=== PATIENT | female | born 1990 | race Hispanic/Latino ===

== ENCOUNTER 2025-08-26 17:12 | Inpatient (IN) | payer BC ==
[2025-08-26 17:40] LABS: #Basophils 0.05 10x3/uL (0.0-0.2); #Eosinophils 0.15 10x3/uL (0.0-0.5); #Monocytes 0.65 10x3/uL (0.0-1.1); #Neutrophils 7.14 10x3/uL (1.5-8.4); %Basophils 0.5 % (0.0-2.0); %Eosinophils 1.5 % (0.0-6.0); %Lymphocytes 22.1 % (18.0-47.0); %Monocytes 6.3 % (0.0-10.0); %Neutrophils 69.3 % (40.0-75.0); Hematocrit 38.3 % (34.9-44.5); Hemoglobin 13.4 g/dL (12.0-15.5); Mean Corpuscular Hemoglobin 31.7 pg (27.0-33.0); Mean Corpuscular Volume 90.5 fL (81.6-98.3); Platelet Count 388 10x3/uL (150-450); Red Blood Cell (RBC) Count 4.23 10x6/uL (3.90-5.03); White Blood Cell (WBC) Count 10.30 10x3/uL (3.5-10.5)
[2025-08-26 17:54] LABS: ALT (SGPT) 19 U/L (Less than 34); AST (SGOT) 18 U/L (11-34); Albumin 3.7 g/dL (3.1-4.5); Alkaline Phosphatase 118 U/L (40-110); Anion Gap 12 mmol/L (10-20); BUN (Urea Nitrogen) 6 mg/dL (7.0-18.7); Bilirubin, Total 0.4 mg/dL (0.3-1.2); Calc. Creatinine Clearance 0 mL/min (70-130); Calcium 8.8 mg/dL (7.8-10.44); Carbon Dioxide 22 mmol/L (22-29); Chloride 103 mmol/L (98-107); Globulin 4.2 g/dL (2.4-3.5); Glucose 131 mg/dL (70-105); Potassium 3.8 mmol/L (3.5-5.1); Sodium 133 mmol/L (136-145)
[2025-08-26 17:59] LABS: Troponin I Less than 0.010 ng/mL (< 0.028)
[2025-08-26] MEDS ORDERED: Ketorolac Tromethamine 30 MG (1 mL) VIAL ONE ×2 (18:11→19:59)
[2025-08-26] MEDS ORDERED: Albuterol 2.5 MG (3 mL) NEB ONE (18:15)
[2025-08-26 18:26] LABS: BHCG - Serum Negative (NEGATIVE); Pregs Control Background? CLEAR/WHITE (CLR/WHITE); Pregs Control Bar Appear? YES (CONTROL BAR)
[2025-08-26] MEDS ORDERED: Acetaminophen 325 MG TAB PO PRN (22:37)
[2025-08-26 23:02] LABS: Magnesium 2.0 mg/dL (1.6-2.6)
[2025-08-26 23:37] VITALS: BMI 39.5
[2025-08-26] MEDS: FLU (Fluarix Triv) 25-26 (6MOS UP)/PF 45 MCG/0.5 ML Syringe IM ONE (23:45)
[2025-08-26] MEDS: PNEUMOC 20-VAL CONJ-DIP CRM/PF 0.5 ML SYRINGE IM ONE (23:45)
[2025-08-27] MEDS: Ibuprofen 200 MG TAB PO SCH (00:27)
[2025-08-27] MEDS: Colchicine 0.6 MG TAB PO SCH ×2 (00:28→09:34)
[2025-08-27 05:03] LABS: #Basophils 0.05 10x3/uL (0.0-0.2); #Eosinophils 0.09 10x3/uL (0.0-0.5); #Monocytes 0.84 10x3/uL (0.0-1.1); #Neutrophils 5.52 10x3/uL (1.5-8.4); %Basophils 0.6 % (0.0-2.0); %Eosinophils 1.0 % (0.0-6.0); %Lymphocytes 27.5 % (18.0-47.0); %Monocytes 9.3 % (0.0-10.0); %Neutrophils 61.3 % (40.0-75.0); Hematocrit 31.6 % (34.9-44.5); Hemoglobin 10.6 g/dL (12.0-15.5); Mean Corpuscular Hemoglobin 31.5 pg (27.0-33.0); Mean Corpuscular Volume 93.8 fL (81.6-98.3); Platelet Count 382 10x3/uL (150-450); Red Blood Cell (RBC) Count 3.37 10x6/uL (3.90-5.03); White Blood Cell (WBC) Count 9.01 10x3/uL (3.5-10.5)
[2025-08-27 05:17] LABS: Anion Gap 12 mmol/L (10-20); BUN (Urea Nitrogen) 8 mg/dL (7.0-18.7); Calc. Creatinine Clearance 210 mL/min (70-130); Calcium 8.1 mg/dL (7.8-10.44); Carbon Dioxide 21 mmol/L (22-29); Chloride 104 mmol/L (98-107); Glucose 116 mg/dL (70-105); Potassium 4.6 mmol/L (3.5-5.1); Sodium 132 mmol/L (136-145)
[2025-08-27] MEDS: Enoxaparin 40 MG (0.4 mL) SYRINGE SC SCH (09:27)
[2025-08-27] MEDS: Pantoprazole 40 MG DR.TAB PO SCH (09:27)
[2025-08-27 11:39] VITALS: TEMP 97.9
[2025-08-27 14:43] VITALS: BP 96/63
== END 2025-08-27 13:48 | disposition short-term general hospital (02) | DRG 316 ==
LOC: CSHERS 17:12 → CSHICU 22:37
PROVIDERS: ADMIT Family Medicine; ATTEND Internal Medicine
DX: I31.39 Other pericardial effusion (noninflammatory) (principal); J45.20 Mild intermittent asthma, uncomplicated; Z87.891 Personal history of nicotine dependence; E66.9 Obesity, unspecified; Z68.39 Body mass index [BMI] 39.0-39.9, adult; F90.9 Attention-deficit hyperactivity disorder, unspecified type
CPT/HCPCS: 36415; 71045; 71275; 80048; 80053; 83036; 83690; 83735; 83880; 84443; 84484; 84703; 85025; 86140; 87428; 93005; 93306; 94640; 94760; 96374; 96375; 96376; J1650; J1885; J2270; J7120; J7611